=== PATIENT | male | born 1980 | race American Indian/Alaskan Native ===

== ENCOUNTER 2021-07-04 14:26 | Emergency (ER) | payer SELFPAY ==
--- NOTE | 2021-07-04 15:45 | Emergency Department Report ---
ED Upper Extremity Inj HPI - General Chief Complaint: Extremity Injury, Upper Stated Complaint: RIGHT ARM INJURY/CUT 3 D AGO Time Seen by Provider: 07/04/21 15:17 Source: patient Mode of arrival: Ambulatory Limitations: No Limitations - History of Present Illness Initial Comments: Patient is a 41-year-old male presents emergency room with complaints of a right forearm injury that occurred 4 nights ago. Patient states that he was moving a glass door when part of it broke. He states he suffered a laceration to the forearm. He reports that he cleaned it well and that it appears to be improving. he states that he continues to have arm pain. He states his arm pain is worse with movement. He denies any numbness or weakness. Allergy to antihistamines - Related Data Previous Rx's Medication Instructions Recorded Last Taken Type Naproxen 375 mg PO BID PRN #20 tablet 07/04/21 Unknown Rx Allergies Allergy/AdvReac Type Severity Reaction Status Date / Time Antihistamines - Alkylamine Allergy Hives Verified 07/04/21 15:15 ED Review of Systems ROS: Stated complaint: RIGHT ARM INJURY/CUT 3 D AGO Other details as noted in HPI Comment: All other systems reviewed and negative ED Past Medical Hx - Medications Home Medications: Home Medications Medication Instructions Recorded Confirmed Last Taken Type Naproxen 375 mg PO BID PRN #20 tablet 07/04/21 Unknown Rx ED Physical Exam - General Limitations: No Limitations General appearance: alert, in no apparent distress - Head Head exam: Present: atraumatic, normocephalic - Eye Eye exam: Present: normal appearance - ENT ENT exam: Present: mucous membranes moist - Extremities Exam Extremities exam: Present: other (1 cm healing laceration present to the right posterior forearm, ttp and mild edema to the right posterior forearm, no erythema, no increased warmth, no drainage, compartments are soft, FROM, neurovascularly intact) - Neurological Exam Neurological exam: Present: alert, oriented X3 - Psychiatric Psychiatric exam: Present: normal affect, normal mood - Skin Skin exam: Present: warm, dry ED Course Vital Signs 07/04/21 07/04/21 15:12 16:31 Temperature 97.8 F 98.2 F Pulse Rate 64 80 Respiratory 16 16 Rate Blood Pressure 162/87 126/85 [Left] O2 Sat by Pulse 98 98 Oximetry ED Medical Decision Making - Lab Data Vital Signs 07/04/21 07/04/21 15:12 16:31 Temperature 97.8 F 98.2 F Pulse Rate 64 80 Respiratory 16 16 Rate Blood Pressure 162/87 126/85 [Left] O2 Sat by Pulse 98 98 Oximetry - Radiology Data Radiology results: report reviewed Ordering Physician: CONCHITA GIBBS Date of Service: 07/04/21 Procedure(s): XR forearm RT Accession Number(s): [id number] cc: CONCHITA GIBBS Fluoro Time In Minutes: RIGHT FOREARM 2 VIEW(S) INDICATION / CLINICAL INFORMATION: right forearm pain after glass door fell on arm COMPARISON: None available. FINDINGS: BONES / JOINT(S): No acute fracture or subluxation. No significant arthritis. SOFT TISSUES: No significant abnormality. No radiopaque foreign bodies are seen. ADDITIONAL FINDINGS: None. Signer Name: Joseph Levy MD Signed: 07/04/2021 4:02 PM Workstation Name: [id number] Transcribed By: SS Dictated By: Joseph Levy MD Electronically Authenticated By: Joseph Levy MD Signed Date/Time: 07/04/211601 DD/ 00 TD/TT: - Medical Decision Making Patient is a 41-year-old male presents emergency room with complaints of a right forearm injury that occurred 4 nights ago. Patient states that he was moving a glass door when part of it broke. He states he suffered a laceration to the forearm. He reports that he cleaned it well and that it appears to be improving. he states that he continues to have arm pain. He states his arm pain is worse with movement. He denies any numbness or weakness. Allergy to antihistamines. Vitals are stable. On exam:1 cm healing laceration present to the right posterior forearm, ttp and mild edema to the right posterior forearm, no erythema, no increased warmth, no drainage, compartments are soft, FROM, neurovascularly intact. X-ray right forearm BONES / JOINT(S): No acute fracture or subluxation. No significant arthritis. SOFT TISSUES: No significant abnormality. No radiopaque foreign bodies are seen. ADDITIONAL FINDINGS: None. Patient placed in Velcro wrist splint by tech and remain neurovascular intact. advised patient Please take medication as prescribed as needed. May ice 15 minutes at a time, rest, elevate the arm. Follow-up with orthopedic doctor if symptoms not improving. Return to emergency room for any new or symptoms. Critical care attestation.: If time is entered above; I have spent that time in minutes in the direct care of this critically ill patient, excluding procedure time. ED Disposition Clinical Impression: Crushing injury of right forearm Qualifiers: Encounter type: initial encounter Qualified Code(s): S57.81XA - Crushing injury of right forearm, initial encounter Laceration of right forearm Qualifiers: Encounter type: initial encounter Qualified Code(s): S51.811A - Laceration without foreign body of right forearm, initial encounter Disposition: HOME / SELF CARE / HOMELESS Is pt being admited?: No Does the pt Need Aspirin: No Condition: Stable Instructions: Crush Injury of the Hand, Laceration Care, Adult Additional Instructions: Please take medication as prescribed as needed. May ice 15 minutes at a time, rest, elevate the arm. Follow-up with orthopedic doctor if symptoms not improving. Return to emergency room for any new or symptoms. Prescriptions: Naproxen 375 mg PO BID PRN #20 tablet PRN Reason: pain Referrals: PRIMARY CAREMD [Primary Care Provider] - 3-5 Days MARCO ANTONIO SHELTON MD [Staff Physician] - 3-5 Days Time of Disposition: 16:09 Print Language: MALTESE
--- NOTE | 2021-07-04 16:06 | XRay Report ---
RIGHT FOREARM 2 VIEW(S) INDICATION / CLINICAL INFORMATION: right forearm pain after glass door fell on arm COMPARISON: None available. FINDINGS: BONES / JOINT(S): No acute fracture or subluxation. No significant arthritis. SOFT TISSUES: No significant abnormality. No radiopaque foreign bodies are seen. ADDITIONAL FINDINGS: None. Signer Name: Joseph Levy MD Signed: 07/04/2021 4:02 PM Workstation Name: [id number]
[2021-07-04 16:33] VITALS: BP 126/85
== END 2021-07-04 16:33 | disposition home or self-care (01) ==
LOC: ED 14:26
DX: S51.811A Laceration without foreign body of right forearm, initial encounter (principal); S57.81XA Crushing injury of right forearm, initial encounter; W25.XXXA Contact with sharp glass, initial encounter; Y93.89 Activity, other specified; Y92.89 Other specified places as the place of occurrence of the external cause; Y99.8 Other external cause status
CPT/HCPCS: 99283